=== PATIENT | male | born 1970 | race Caucasian/White ===

== ENCOUNTER 2024-08-17 20:50 | Emergency (ER) | payer OTHER, SELFPAY ==
[2024-08-17 20:52] VITALS: BP 179/98
[2024-08-17 21:23] LABS: % Basophils 0.2 % (0-2); % Eosinophils 2.2 % (0-6); % Immature Granulocytes 0.2 % (0-0.5); % Lymphocytes 32.5 % (20.5-51.1); % Monocytes 7.6 % (1.7-9.3); % Neutrophils 57.3 % (42.2-75.2); Absolute Eosinophils 0.2 10^3/uL (0-0.7); Absolute Lymphocytes 2.8 10^3/uL (1.2-3.4); Absolute Monocytes 0.7 10^3/uL (0.1-0.6); Absolute Neutrophils 4.9 10^3/uL (1.4-6.5); Hematocrit 38.6 % (39.0-52.0); Hemoglobin 13.3 g/dL (13.0-18.0); Mean Corp Hgb Conc. 34.5 g/dL (33.0-37.0); Mean Corpuscular Volume 84.1 fL (80.0-94.0); Mean Platelet Volume 9.5 fL (7.4-10.4); Nucleated Red Blood Cells % 0 % (-); Platelet Count 235 10^3/uL (130-400); Red Blood Cell Count 4.59 10^6/uL (4.70-6.10); White Blood Cell Count 8.6 10^3/uL (4.8-10.8)
[2024-08-17 21:36] LABS: ALT (SGPT) 37 U/L (0-50); AST (SGOT) 25 U/L (17-59); Albumin 4.5 g/dl (3.5-5.0); Alkaline Phosphatase 53 U/L (38-126); Blood Urea Nitrogen 18 mg/dl (9-20); Calcium 9.5 mg/dl (8.4-10.2); Carbon Dioxide 25 mmol/L (22-30); Chloride 107 mmol/L (98-107); Glucose 152 mg/dl (70-99); Potassium 4.4 mmol/L (3.5-5.1); Sodium 141 mmol/L (135-145); Total Bilirubin 0.7 mg/dl (0.2-1.3); Total Protein 7.5 g/dl (6.3-8.2); eGFR > 60.00
[2024-08-17 21:41] LABS: COVID-19 Antigen Negative (Negative)
[2024-08-17] MEDS: MOTRIN 400 MG PO (22:45)
[2024-08-18 03:18] VITALS: BP 151/83
[2024-08-18] MEDS: AUGMENTIN 875 MG/125 MG 1 TABLET PO (03:22)
[2024-08-18] MEDS: TORADOL 30 MG IM (03:22)
[2024-08-18] MEDS: DECADRON 10 MG PO (03:22)
[2024-08-18] MEDS: ZITHROMAX 500 MG PO (03:23)
--- NOTE | 2024-08-18 03:34 | ED.GENMED ---
History of Present Illness
General
Chief Complaint: Cold/Flu/URI Symptoms
Source: patient
Exam Limitations: none
Time Seen by Provider: 08/18/24 02:00
Nursing documentation reviewed up to this point in time: agreed with
History of Present Illness
History of Present Illness:
54-year-old male patient with history of diabetes presenting to the emergency department today with concerns of fever also cough over the past 7 days and right-sided ear pain. Denies significant shortness of breath chest pain abdominal pain
vomiting.
Past History
Past History
ED Past Medical History: None
ED Past Surgical History: None
Social History
Tobacco: Non-smoker
Alcohol: None
Drug: None
Review of Systems
Review of Systems
Allergies reviewed?: Yes
All Other Systems: ROS reviewed and negative except as documented in HPI and ROS
Phy Exam
Physical Exam
Physical Exam:
GENERAL: Alert , in no apparent distress
EYE: pupils equal and reactive
NECK: Supple, no significant adenopathy.
ENT: Bulging right-sided tympanic membrane red in color o/p clr, mmm.
CARDIAC: Regular rate and rhythm .
LUNGS: Clear breath sounds bilaterally, no acute respiratory distress, no wheezes/rales/rhonchi
ABDOMEN: Soft, without focal tenderness, no r/g, no cvat
NEUROLOGICAL: Alert and oriented, no focal neuro deficits
SKIN: Warm and dry, skin intact.
MUSCULOSKELETAL: No edema, well perfused.
PSYCH: Normal and appropriate interaction.
Course
Orders/Labs/Results
Orders:
Orders
08/17/24 20:54
CR Chest - 2 Views Urgent
Comment:
Reason For Exam: cough
08/17/24 21:00
COVID-19 Antigen Urgent
Source: Nasal Swab
Complete Blood Count/With Diff Urgent
Comprehensive Metabolic Panel Urgent
Influenza A+B Rapid Molecular Urgent
FAYE Source: Nasal Swab
Specimen Description:
08/17/24 22:43
Ibuprofen [Motrin] 400 mg .ROUTE .STK-MED ONE
08/17/24 22:45
Ibuprofen [Motrin] 400 mg PO NOW STA
08/18/24 02:58
Amoxicillin 875 mg/Clav 125 mg [Augmentin 875 mg/125 mg] 1 tablet PO NOW STA
Azithromycin [Zithromax] 500 mg PO NOW STA
Dexamethasone [Decadron] 10 mg PO NOW STA
Ketorolac [Toradol] 30 mg IM NOW STA
Abnormal Lab Results
08/17/24
21:00
RBC 4.59 L 10^6/uL
(4.70-6.10)
Hct 38.6 L %
(39.0-52.0)
Absolute Monos (auto) 0.7 H 10^3/uL
(0.1-0.6)
Glucose 152 H mg/dl
(70-99)
08/17/24 21:00
08/17/24 21:00
Vital Signs
Initial and Last Documented VS:
Initial Vital Signs
Temp Pulse Resp BP Pulse Ox
98.0 F 85 20 179/98 96
08/17/24 20:52 08/17/24 20:52 08/17/24 20:52 08/17/24 20:52 08/17/24 20:52
Last Documented Vital Signs
Temp Pulse Resp BP Pulse Ox
98.5 F 79 16 151/83 97
08/18/24 03:18 08/18/24 03:18 08/18/24 03:18 08/18/24 03:18 08/18/24 03:18
MDM/Problems Addressed
MDM/Problems Addressed:
54-year-old male presenting to the emergency department today with concerns of fever cough for 7 days as well as right-sided ear pain. On arrival hypertensive but otherwise vital signs are normal. Blood pressure improving after symptomatic
treatment. Was found to have a bulging right tympanic membrane. Potentially consistent with otitis media. Started on antibiotics. Additionally chest x-ray performed that showed possible consolidation to the right lower lobe already being treated
with antibiotics for the otitis media. Otherwise stable for outpatient management. Return precautions were given.
*Critical Care Note
Total Time (30-74mins, 75-104mins- exclusive of procedures): Not Applicable
ED Attending Note
-
Portions of this chart may have been created with voice recognition software.� Occasional wrong word or��sound alike� substitutions may have occurred due to the inherent limitations of voice recognition software.
Discharge Plan
Departure
Patient Disposition: Home (Routine Discharge)
Date of Disposition: 08/18/24
Time of Disposition: 03:37
Patient with high blood pressure during this ER visit?: No
Condition: Good
Covid-19: Not Applicable
Discharge Problem:
Acute pneumonia, Acute otitis media
Instructions: Pneumonia in adults
Prescriptions:
New
amoxicillin-pot clavulanate 875-125 mg tablet
1 tab PO BID 7 Days Qty: 14 0RF
azithromycin 500 mg tablet
500 mg PO DAILY 2 Days Qty: 2 0RF
No Action
prednisone 10 mg Tablet
See Rx Instructions .ROUTE .COMPLEX Qty: 45 0RF
Rx Instructions:
Take By Mouth:
50 mg daily x3 days, 40 mg daily x3 days,
30 mg daily x3 days, 20 mg daily x3 days,
10 mg daily x3 days
Referrals:
Marion Gordon CRNP [Family Provider] -
Activity Restrictions/Additional Instructions:
You came to the emergency department today with concerns of fever cough and ear pain. Here you are found to have potential pneumonia as well as otitis media. Please take prescribed antibiotic and Motrin for discomfort. Drink plenty of fluids.
Return for any worsening, new or symptoms. Otherwise follow-up closely with a primary care in 1 week for reassessment.
Interventions
Interventions:
*Risk Screen - Suicide Last Done: 08/18/24 03:19
*General Assessment Last Done: 08/17/24 20:52
*Neglect/Abuse Screening Last Done: 08/18/24 03:19
*ED- Fall Risk Assessment Last Done: 08/18/24 03:19
*ED COVID-19 Vaccine History Last Done: 08/18/24 03:19
ED- Pulmonary Assessment Last Done: 08/18/24 03:19
Discharge Date and Time
Print Language: [place]
== END 2024-08-18 04:10 | disposition home or self-care (01) ==
LOC: EMR 20:50
PROVIDERS: Student in an Organized Health Care Education/Training Program; EMERGENCY PHYSICIAN Emergency Medicine; FAMILY PHYSICIAN Nurse Practitioner
DX: J18.9 Pneumonia, unspecified organism (principal); H92.01 Otalgia, right ear; R50.9 Fever, unspecified; R05.9 Cough, unspecified; E11.9 Type 2 diabetes mellitus without complications
CPT/HCPCS: 99283; 71046; 80053; 85025; 87502; 87811

== ENCOUNTER → 2024-11-05 12:37 | Outpatient (REF) | payer OTHER, SELFPAY | LOC: RCS 12:37 | PROVIDERS: ATTENDING PHYSICIAN Internal Medicine Cardiovascular Disease; FAMILY PHYSICIAN Nurse Practitioner | DX: I10 Essential (primary) hypertension (principal); E78.5 Hyperlipidemia, unspecified; E11.9 Type 2 diabetes mellitus without complications; Z82.49 Family history of ischemic heart disease and other diseases of the circulatory system; R94.31 Abnormal electrocardiogram [ECG] [EKG] | CPT/HCPCS: 93306 ==

== ENCOUNTER → 2025-02-01 07:05 | Outpatient (REF) | payer OTHER, SELFPAY | LOC: HWRCS 07:05 | PROVIDERS: ATTENDING PHYSICIAN Internal Medicine Cardiovascular Disease; FAMILY PHYSICIAN Nurse Practitioner | DX: E11.9 Type 2 diabetes mellitus without complications (principal); Z82.49 Family history of ischemic heart disease and other diseases of the circulatory system; Z87.891 Personal history of nicotine dependence; R94.31 Abnormal electrocardiogram [ECG] [EKG] | CPT/HCPCS: 78452; 93017; A9500 ==

== ENCOUNTER → 2025-03-11 09:50 | Outpatient (REF) | payer OTHER, SELFPAY | LOC: RAD 09:50 | PROVIDERS: ATTENDING PHYSICIAN Internal Medicine Cardiovascular Disease; FAMILY PHYSICIAN Nurse Practitioner | DX: R94.39 Abnormal result of other cardiovascular function study (principal) | CPT/HCPCS: 75574; Q9967 ==

== ENCOUNTER 2025-03-30 09:34 | Day surgery (SDC) | payer OTHER, SELFPAY ==
[2025-03-26 12:04] VITALS: BMI 29.7
[2025-03-26 12:28] LABS: Hematocrit 40.0 % (39.0-52.0); Hemoglobin 13.4 g/dL (13.0-18.0); Mean Corp Hgb Conc. 33.5 g/dL (33.0-37.0); Mean Corpuscular Volume 84.9 fL (80.0-94.0); Nucleated Red Blood Cells % 0 % (-); Platelet Count 244 10^3/uL (130-400); Red Cell Dist. Width 12.4 % (11.5-14.5)
[2025-03-26 12:53] LABS: ALT (SGPT) 32 U/L (0-50); AST (SGOT) 27 U/L (17-59); Albumin 5.2 g/dl (3.5-5.0); Alkaline Phosphatase 49 U/L (38-126); Blood Urea Nitrogen 20 mg/dl (9-20); Calcium 9.9 mg/dl (8.4-10.2); Carbon Dioxide 26 mmol/L (22-30); Chloride 105 mmol/L (98-107); Estimated Creatinine Clearance 100 ml/min; Glucose 109 mg/dl (70-99); Potassium 4.0 mmol/L (3.5-5.1); Sodium 140 mmol/L (135-145); Total Protein 8.1 g/dl (6.3-8.2); eGFR > 60.00
[2025-03-30] VITALS (15 sets, daily range): BP systolic 111–151; BP diastolic 64–92
[2025-03-30 10:29] LABS: Glucose - Point of Care 112 mg/dl (70-99)
[2025-03-30] MEDS: NSS 266 ML IV (10:48)
--- NOTE | 2025-03-30 12:25 | ITS.CL.PN ---
Food Service Specialist - Procedure Note
Procedure
Procedure Note:
CARDIAC CATHETERIZATION REPORT
Date of Procedure: 03/30/2025
Referring: Dr. Pilo Luther MD
Indication: positive cardiac stress test and CT coronary angiogram with concern for obstructive coronary artery disease
PROCEDURE(S)
1. left heart catheterization
2. coronary angiography
ACCESS: 6F right radial artery (closure: radial band)
CATHETERS
1. 6F JR4
2. 6F JL3.5
MODERATE SEDATION: 25 minutes of moderate sedation was utilized. An independent medical data analyst was present to assist with and help manage the patient's level of consciousness and physiologic status.
HEMODYNAMIC DATA
LV 119/8 (EDP 23) mmHg
AO 116/71 (mean 94) mmHg
CORONARY ANGIOGRAPHY
Dominance: Right
LM: Large, normal
LAD: Large vessel giving rise to several small diagonal branches. There are serial 80% and 90% stenoses in the distal LAD.
Ramus: Large vessel with a focal ~60% ostial stenosis and mild disease otherwise
LCx: Moderate caliber vessel giving rise to a moderate caliber OM1 and small OM2. There is focal 80% stenosis in the OM2.
RCA: Large vessel giving rise to a moderate caliber RPDA, moderate caliber RPL1, and moderate caliber RPL2. There is a focal 70% stenosis in the mid RPDA and otherwise diffuse mild disease.
RADIATION: dose 386 mGy; DAP 22.9 Gy*cm2; fluoroscopy time 6.3 min
CONCLUSIONS
1. Moderate CAD in a right dominant system as described
2. Mildly elevated LV filling pressure and no aortic stenosis
RECOMMENDATIONS
1. Aggressive secondary prevention of coronary artery disease
Copy to: Dr. Pilo Luther MD (director selection and administration); ELENA Echeverria (PCP)
Signed: Antonio Wade MD, PhD
== END 2025-03-30 15:00 | disposition home or self-care (01) ==
LOC: CATH 09:34
PROVIDERS: ATTENDING PHYSICIAN Student in an Organized Health Care Education/Training Program; OTHER PHYSICIAN Internal Medicine Cardiovascular Disease
DX: I25.10 Atherosclerotic heart disease of native coronary artery without angina pectoris (principal); R94.39 Abnormal result of other cardiovascular function study; E11.9 Type 2 diabetes mellitus without complications; E66.9 Obesity, unspecified; E78.5 Hyperlipidemia, unspecified; H40.9 Unspecified glaucoma; I10 Essential (primary) hypertension; Z68.29 Body mass index [BMI] 29.0-29.9, adult; Z87.891 Personal history of nicotine dependence; Z79.82 Long term (current) use of aspirin; Z79.84 Long term (current) use of oral hypoglycemic drugs; Z79.899 Other long term (current) drug therapy; Z82.49 Family history of ischemic heart disease and other diseases of the circulatory system; Z87.19 Personal history of other diseases of the digestive system; Z90.89 Acquired absence of other organs
CPT/HCPCS: 99152; 99153; 36415; 80053; 82962; 85025; 93005; 93458; C1769; Q9967